=== PATIENT | female | born 2000 | race African-American/Black ===

== ENCOUNTER 2024-03-25 10:35 | Emergency (ER) | payer BC, OTHER ==
[~2024-03-25] VITALS: Ht 157.5 cm; Wt 91.0 kg
[2024-03-25 11:27] VITALS: BP 140/78; PULSE 72; RESP 16; TEMP 98.6; O2SAT 98
[2024-03-25] MEDS: ACETAMINOPHEN 500 MG TAB PO ONE (11:51)
[2024-03-25] MEDS ORDERED: CYCL-839 PO (12:38)
[2024-03-25] MEDS ORDERED: IBUP-1455 PO (12:38)
== END 2024-03-25 12:40 | disposition home or self-care (01) ==
LOC: ER 10:35
DX: S13.4XXA Sprain of ligaments of cervical spine, initial encounter (principal); M54.9 Dorsalgia, unspecified; V89.2XXA Person injured in unspecified motor-vehicle accident, traffic, initial encounter; Y93.89 Activity, other specified; Y92.411 Interstate highway as the place of occurrence of the external cause; Y99.8 Other external cause status
CPT/HCPCS: 70450